=== PATIENT | male | born 1990 | race African-American/Black ===

== ENCOUNTER 2017-12-25 09:35 | Emergency (ER) | payer MEDICAID ==
[2017-12-25 09:46] VITALS: BP 120/82
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
--- NOTE | 2017-12-25 10:13 | CPEKG ---
Test Reason : OPEN Blood Pressure : / mmHG Vent. Rate : 072 BPM Atrial Rate : 075 BPM P-R Int : 154 ms QRS Dur : 086 ms QT Int : 361 ms P-R-T Axes : 076 040 051 degrees QTc Int : 396 ms Sinus rhythm Confirmed by Brennen Saba ([id number]) on 12/25/2017 10:12:41 AM Referred By: Confirmed By:Brennen Saba
== END 2017-12-25 10:29 | disposition home or self-care (01) ==
DX: R55 Syncope and collapse (principal); K58.9 Irritable bowel syndrome, unspecified; F17.200 Nicotine dependence, unspecified, uncomplicated

== ENCOUNTER 2018-02-05 19:27 | Emergency (ER) | payer MEDICAID ==
[2018-02-05] MEDS ORDERED: NS 1,000 ML IV ONE (19:34)
--- NOTE | 2018-02-05 19:35 | EDPHY ---
H & P Stated Complaint: sz Time Seen by Provider: 02/05/18 19:34 HPI/ROS: HPI CHIEF COMPLAINT: Seizure HISTORY OF PRESENT ILLNESS: Patient is a 27-year-old male, he has a history of bipolar disorder, PTSD and IBS, states he has pseudoseizures, does not take any seizure medications, he presents emergency room after he states he was at the was center listening to a flexure and clapping got loud he started feeling overwhelmed by the clapping states he wanted to leave however this triggered 1 of his seizures. He states during his seizures she does not lose consciousness , he can't remember everything, he remembers all the event tonight. He states the clapping got very loud this caused his seizure. Witnesses report that he had shaking episode with no loss of conscious no postictal state, no bowel bladder incontinence no syncope and no fall. Past Medical History: IBS, PTSD and bipolar disorder, TBI. Past Surgical History: No recent surgical history Social History: Denies alcohol. Occasional marijuana use. Tobacco use. Family History: Noncontributory ROS REVIEW OF SYSTEMS: 10 Systems were reviewed and negative with the exception of the elements mentioned in the history of present illness. Exam Constitutional nontoxic no acute distress triage nursing summary reviewed, vital signs reviewed, awake/alert. Eyes normal conjunctivae and sclera, EOMI, PERRLA. HENT normal inspection, atraumatic, moist mucus membranes, no epistaxis, neck supple/ no meningismus, no raccoon eyes. Respiratory clear to auscultation bilaterally, normal breath sounds, no respiratory distress, no wheezing. Cardiovascular rate normal, regular rhythm, no murmur, no edema, distal pulses normal. Gastrointestinal soft, non-tender, no rebound, no guarding, normal bowel sounds, no distension, no pulsatile mass. Genitourinary no CVA tenderness. Musculoskeletal no midline vertebral tenderness, full range of motion, no calf swelling, no tenderness of extremities, no meningismus, good pulses, neurovascularly intact. Skin pink, warm, & dry, no rash, skin atraumatic. Neurologic GCS 15, unremarkable neurological exam on exam, awake, alert and oriented x 3, AAOx3, moves all 4 extremities equally, motor intact, sensory intact, CN II-XII intact, normal cerebellar, normal vision, normal speech. Psychiatric normal mood/affect. Heme/Lymph/Immune no lymphadenopathy. Differential Diagnosis: Includes but is not limited to in a particular order pseudo seizure, seizure, electrolyte disturbance, dehydration, drug intoxication underlying mental illness Medical Decision Making: Plan for this patient IV establishment IV fluid bolus basic blood work. Monitor for recurrence of seizure. Return if worsening symptoms. Re-evaluation: EKG interpretation by me on record in [employer] system. Time of EKG 1956, sinus rhythm rate of 75 with no signs of acute ischemia or cardiac arrhythmia. 2052: Patient re-evaluated this time is resting comfortably. In fact he staying at the ER door requesting discharge. Vital signs are stable. Blood work unremarkable. Will allow the patient to be discharged at his request. There has been no further seizure activity or pseudo seizure activity here in the emergency room. Return precautions discussed recommend follow up primary care doctor. Source: Patient, EMS - Personal History Tetanus Vaccine Date: 2017 - Medical/Surgical History Hx Asthma: Yes Hx Chronic Respiratory Disease: No Hx Diabetes: No Hx Cardiac Disease: No Hx Renal Disease: No Hx Cirrhosis: No Hx Alcoholism: Yes Hx HIV/AIDS: No Hx Splenectomy or Spleen Trauma: No Other PMH: IBS, bipolar, - Social History Smoking Status: Heavy smoker Constitutional: Initial Vital Signs Temperature (C) 36.8 C 02/05/18 19:28 Heart Rate 84 02/05/18 19:28 Respiratory Rate 16 02/05/18 19:28 Blood Pressure 124/85 H 02/05/18 19:28 O2 Sat (%) 93 02/05/18 19:28 O2 Delivery Mode Room Air Allergies/Adverse Reactions: gabapentin Allergy (Verified 12/25/17 09:43) Home Medications: Medication Instructions Recorded Cbd Thc 12/25/17 Medical Decision Making - Data Points Laboratory Results: Laboratory Results 02/05/18 20:00 02/05/18 20:00 02/05/18 02/05/18 02/05/18 20:41 20:00 20:00 WBC 16.36 10^3/uL H 10^3/uL (3.80-9.50) RBC 5.04 10^6/uL 10^6/uL (4.40-6.38) Hgb 15.2 g/dL g/dL (13.7-17.5) Hct 44.0 % % (40.0-51.0) MCV 87.3 fL fL (81.5-99.8) MCH 30.2 pg pg (27.9-34.1) MCHC 34.5 g/dL g/dL (32.4-36.7) RDW 12.4 % % (11.5-15.2) Plt Count 252 10^3/uL 10^3/uL (150-400) MPV 10.5 fL fL (8.7-11.7) Neut % (Auto) 77.2 % H % (39.3-74.2) Lymph % (Auto) 14.6 % L % (15.0-45.0) Prentiss % (Auto) 6.8 % % (4.5-13.0) Eos % (Auto) 0.7 % % (0.6-7.6) Baso % (Auto) 0.4 % % (0.3-1.7) Nucleat RBC Rel Count 0.0 % % (0.0-0.2) Absolute Neuts (auto) 12.62 10^3/uL H 10^3/uL (1.70-6.50) Absolute Lymphs (auto) 2.39 10^3/uL 10^3/uL (1.00-3.00) Absolute Monos (auto) 1.11 10^3/uL H 10^3/uL (0.30-0.80) Absolute Eos (auto) 0.12 10^3/uL 10^3/uL (0.03-0.40) Absolute Basos (auto) 0.07 10^3/uL 10^3/uL (0.02-0.10) Absolute Nucleated RBC 0.00 10^3/uL 10^3/uL (0-0.01) Immature Gran % 0.3 % % (0.0-1.1) Immature Gran # 0.05 10^3/uL 10^3/uL (0.00-0.10) Sodium 137 mEq/L mEq/L (135-145) Potassium 4.1 mEq/L mEq/L (3.3-5.0) Chloride 103 mEq/L mEq/L (97-110) Carbon Dioxide 24 mEq/l mEq/l (22-31) Anion Gap 10 mEq/L mEq/L (6-14) BUN 17 mg/dL mg/dL (7-23) Creatinine 0.9 mg/dL mg/dL (0.7-1.3) Estimated GFR > 60 Glucose 87 mg/dL mg/dL (70-100) Calcium 9.9 mg/dL mg/dL (8.5-10.4) Urine Opiates Screen Pending Urine Barbiturates Pending Ur Phencyclidine Scrn Pending Ur Amphetamine Screen Pending U Benzodiazepines Scrn Pending Urine Cocaine Screen Pending U Marijuana (THC) Screen Pending Medications Given: Discontinued Medications Sodium Chloride (Ns) 1,000 mls @ 0 mls/hr IV EDNOW ONE; Wide Open PRN Reason: Protocol Stop: 02/05/18 19:35 Last Admin: 02/05/18 20:01 Dose: 1,000 mls Departure - Departure Disposition: Home, Routine, Self-Care Clinical Impression: Pre-syncope Condition: Good Instructions: Near Syncope (ED) Additional Instructions: 1. Follow up with your primary care doctor 2. Return if worse. Referrals: NONE *PRIMARY CARE P,. [Primary Care Provider] - As per Instructions [facility],. [Clinic] - As per Instructions
[2018-02-05 20:08] LABS: PLATELET COUNT 252 10^3/uL (150-400)
[2018-02-05 20:58] VITALS: BP 121/65
--- NOTE | 2018-02-07 06:46 | CPEKG ---
Test Reason : OPEN Blood Pressure : / mmHG Vent. Rate : 075 BPM Atrial Rate : 075 BPM P-R Int : 158 ms QRS Dur : 077 ms QT Int : 354 ms P-R-T Axes : 074 045 049 degrees QTc Int : 396 ms Sinus rhythm Confirmed by Brennen Saba ([id number]) on 02/07/2018 6:45:53 AM Referred By: Confirmed By:Brennen Saba
== END 2018-02-05 20:59 | disposition home or self-care (01) ==
LOC: EDUNIT#
DX: R55 Syncope and collapse (principal); E86.9 Volume depletion, unspecified; F31.9 Bipolar disorder, unspecified; F43.10 Post-traumatic stress disorder, unspecified; F17.200 Nicotine dependence, unspecified, uncomplicated
CPT/HCPCS: 80305

== ENCOUNTER 2018-02-14 05:36 | Emergency (ER) | payer MEDICAID ==
[2018-02-14 05:42] VITALS: BP 125/62
[2018-02-14] MEDS ORDERED: ACETAMINOPHEN 500 MG TAB PO ONE (05:48)
--- NOTE | 2018-02-14 05:54 | EDPHY ---
H & P Stated Complaint: MIGRAINE Time Seen by Provider: 02/14/18 05:49 HPI/ROS: HPI CHIEF COMPLAINT: Left-sided headache. HISTORY OF PRESENT ILLNESS: 27-year-old male, presents emergency room by private vehicle for left-sided headache. Patient reports to me he is having a migraine headache. Reports to me his seizure disorder as well as traumatic brain injury. Any steady state headaches after he hit his head. No new trauma. Complains of a left-sided throbbing headache. No focal weakness, no numbness or tingling. Denies any fever neck pain or neck stiffness. Denies any chest pain or shortness of breath. Upon arrival to the emergency room I did offer the patient IV established migraine cocktail. However he has declined this. He states he wants Tylenol. He has not had any vomiting. Denies numbness or tingling denies visual disturbance. Past Medical History: Traumatic brain injury, seizure. Past Surgical History: The no recent surgical history. Social History: Denies drugs alcohol tobacco. Family History: Noncontributory ROS REVIEW OF SYSTEMS: 10 Systems were reviewed and negative with the exception of the elements mentioned in the history of present illness. Exam Constitutional appears well nontoxic triage nursing summary reviewed, vital signs reviewed, awake/alert. Eyes normal conjunctivae and sclera, EOMI, PERRLA. HENT normal inspection, atraumatic, moist mucus membranes, no epistaxis, neck supple/ no meningismus, no raccoon eyes. Respiratory clear to auscultation bilaterally, normal breath sounds, no respiratory distress, no wheezing. Cardiovascular rate normal, regular rhythm, no murmur, no edema, distal pulses normal. Gastrointestinal soft, non-tender, no rebound, no guarding, normal bowel sounds, no distension, no pulsatile mass. Genitourinary no CVA tenderness. Musculoskeletal no midline vertebral tenderness, full range of motion, no calf swelling, no tenderness of extremities, no meningismus, good pulses, neurovascularly intact. Skin pink, warm, & dry, no rash, skin atraumatic. Neurologic normal neurological exam, awake, alert and oriented x 3, AAOx3, moves all 4 extremities equally, motor intact, sensory intact, CN II-XII intact , normal cerebellar, normal vision, normal speech. Psychiatric normal mood/affect. Heme/Lymph/Immune no lymphadenopathy. Differential Diagnosis: Includes but is not limited to in a particular order migraine headache, tension headache, cluster headache, traumatic brain injury, seizure, intracranial Medical Decision Making: Plan for this patient CT scan head without contrast, as well as Tylenol 1 g. Re-evaluation: CT scan head without contrast negative for acute bleed. Called to me by Dr. Ornelas. 0626: Patient reports to me that he is feeling much better after 1 g of Tylenol. His neurological exam is unremarkable. He is here laughing. Smiling. He had sunglasses on I did remove these look at his pupils are pupils are normal. Cranial nerves intact. Denies chest pain or shortness of breath. Denies headache. Doing much better and ready for discharge. Patient requesting discharge. Source: Patient - Personal History Current Tetanus Diphtheria and Acellular Pertussis (TDAP): Yes Tetanus Vaccine Date: 2017 - Medical/Surgical History Hx Asthma: Yes Hx Chronic Respiratory Disease: No Hx Diabetes: No Hx Cardiac Disease: No Hx Renal Disease: No Hx Cirrhosis: No Hx Alcoholism: Yes Hx HIV/AIDS: No Hx Splenectomy or Spleen Trauma: No Other PMH: IBS, bipolar, SZ - Social History Smoking Status: Heavy smoker Constitutional: Initial Vital Signs Temperature (C) 37.0 C 02/14/18 05:40 Heart Rate 99 02/14/18 05:40 Respiratory Rate 16 02/14/18 05:40 Blood Pressure 125/62 H 02/14/18 05:40 O2 Sat (%) 95 02/14/18 05:40 O2 Delivery Mode Room Air Allergies/Adverse Reactions: gabapentin Allergy (Verified 12/25/17 09:43) Home Medications: Medication Instructions Recorded [facility] 12/25/17 Medical Decision Making - Data Points Medications Given: Discontinued Medications Acetaminophen (Tylenol) 1,000 mg PO EDNOW ONE Stop: 02/14/18 05:49 Last Admin: 02/14/18 05:52 Dose: 1,000 mg Departure - Departure Disposition: Home, Routine, Self-Care Clinical Impression: Migraine headache Qualifiers: Migraine type: other Status migrainosus presence: without status migrainosus Intractability: not intractable Qualified Code(s): G43.809 - Other migraine, not intractable, without status migrainosus Condition: Good Instructions: Migraine Headache (ED) Additional Instructions: 1. Return to the emergency room if develops any worsening symptoms questions or concerns. Referrals: Maura Emmanuel ASSISTANT PROF[employer] [Primary Care Provider] - As per Instructions
== END 2018-02-14 06:30 | disposition home or self-care (01) ==
DX: G43.809 Other migraine, not intractable, without status migrainosus (principal); Z87.820 Personal history of traumatic brain injury; F17.200 Nicotine dependence, unspecified, uncomplicated

== ENCOUNTER 2018-07-13 14:31 | Emergency (ER) | payer MEDICAID ==
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
[2018-07-13 14:42] VITALS: BP 166/100
--- NOTE | 2018-07-20 14:36 | CPEKG ---
Test Reason : OPEN Blood Pressure : / mmHG Vent. Rate : 129 BPM Atrial Rate : 129 BPM P-R Int : 172 ms QRS Dur : 083 ms QT Int : 284 ms P-R-T Axes : 082 062 067 degrees QTc Int : 416 ms Sinus tachycardia Borderline ST depression, anterolateral leads Confirmed by Charles Cottrell ([id number]) on 07/20/2018 2:36:04 PM Referred By: Charles Cottrell Confirmed By:Charles Cottrell
== END 2018-07-13 15:01 ==
DX: S80.212A Abrasion, left knee, initial encounter (principal); S80.211A Abrasion, right knee, initial encounter; W51.XXXA Accidental striking against or bumped into by another person, initial encounter